=== PATIENT | female | born 1995 | race Two or more races ===

== ENCOUNTER 2021-03-09 18:53 | Emergency (ER) | payer MEDICAID ==
[~2021-03-09] VITALS: Ht 215.9 cm; Wt 54.4 kg
--- NOTE | 2021-03-09 20:14 | NUR ---
presented to the ER for c/o h/a, ocasional blurry vision and seeing bubble s/p a billboard fell on her head yesterday. -ko reported. pt was seen at [facility] yesterday.
[2021-03-09] MEDS ORDERED: ACETAMINOPHEN ES 500 MG TABLET ONE (20:30)
[2021-03-09] MEDS ORDERED: ACETAMINOPHEN 325 MG TABLET PO ONE (20:30)
--- NOTE | 2021-03-09 20:38 | NUR ---
URINE SAMPLE COLLECTED AND SENT TO LAB
[2021-03-09] MEDS ORDERED: ACET-2605 PO (20:49)
--- NOTE | 2021-03-09 20:50 | NUR ---
LEFT FOR CT
--- NOTE | 2021-03-09 21:00 | NUR ---
back from CT
--- NOTE | 2021-03-09 21:35 | NUR ---
CALLED [facility] FOR REPORT
--- NOTE | 2021-03-09 22:01 | NUR ---
PT IS MEDICALLY STABLE FOR D.C. Patient discharged to home in stable condition. Written and verbal after care instructions given. Patient verbalizes understanding of instruction.
[2021-03-09 22:02] VITALS: BP 127/84
== END 2021-03-09 22:03 | disposition home or self-care (01) ==
LOC: ER 18:57
DX: S06.0X0A Concussion without loss of consciousness, initial encounter (principal); S09.8XXA Other specified injuries of head, initial encounter; R51.9 Headache, unspecified; Z79.899 Other long term (current) drug therapy; W18.39XA Other fall on same level, initial encounter; Y93.89 Activity, other specified; Y92.89 Other specified places as the place of occurrence of the external cause; Y99.8 Other external cause status
CPT/HCPCS: 70450-TC; 84703-TC